=== PATIENT | male | born 1975 | race Caucasian/White ===

== ENCOUNTER 2020-02-16 17:03 | Emergency (ER) | payer BC, SELFPAY ==
--- NOTE | ~2020-02-16 | XR_ITS ---
EXAMINATION: XR chest 2V 02/16/2020 17:42 INDICATION: Midsternal chest pain PROCEDURE: 2 view chest COMPARISON: No prior studies for comparison. FINDINGS: The lungs are clear. The cardiomediastinal silhouette is within normal limits. There are no pleural effusions. There is no pneumothorax suspected. IMPRESSION: 1: NO ACUTE CARDIOPULMONARY DISEASE. Reviewed, dictated and finalized at location A.
[2020-02-16 17:11] VITALS: BP 130/92; PULSE 74; RESP 16; TEMP 36.6; O2SAT 97
--- NOTE | 2020-02-16 17:11 | ECG_ITS ---
Measurements Intervals [place] Rate: 74 P: 42 WA: 185 QRS: -27 QRSD: 121 T: 5 QT: 403 QTc: 450 Interpretive Statements SINUS RHYTHM DELAYED PRECORDIAL R/S TRANSITION VOLTAGE CRITERIA FOR LVH BORDERLINE T WAVE ABNORMALITY- INFERIOR LEADS BORDERLINE ECG Electronically Signed On 02-17-2020 7:08:10 CDT by Boogie Yates D.O.
[2020-02-16 17:37] LABS: Basophils Absolute Auto 0.04 K/mm3 (0.00-0.10); Basophils Percent Auto 0.5 % (0.0-1.0); Eosinophils Percent Auto 1.2 % (1.0-6.0); Hematocrit 38.4 % (40.0-54.0); Hemoglobin 13.1 g/dL (14.0-18.0); Immature Granulocyte Absolute 0.02 K/mm3 (0.00-0.00); Immature Granulocyte Percent A 0.2 % (0.0-0.0); Lymphocytes Absolute Auto 3.53 K/mm3 (1.10-4.50); Mean Corpuscular HGB Conc 34.1 g/dL (32.0-36.0); Mean Corpuscular Volume 87.9 fL (78.0-102.0); Monocytes Absolute Auto 0.87 K/mm3 (0.10-0.90); Monocytes Percent Auto 10.6 % (2.0-11.0); Neutrophils Absolute Auto 3.7 K/mm3 (1.7-7.2); Neutrophils Percent Auto 44.5 % (50.0-70.0); Platelet Count Result 228 K/mm3 (150-420); Red Blood Count 4.37 M/mm3 (4.70-6.10); Red Cell Distribution Width 13.4 % (11.6-14.4); White Blood Count 8.2 K/mm3 (4.8-10.8)
[2020-02-16 17:51] LABS: Alanine Aminotransferase 62 U/L (16-63); Albumin Level 3.9 g/dL (3.4-5.0); Alkaline Phosphatase 39 U/L (46-116); Anion Gap 11 mmol/L (8-16); Aspartate Amino Transferase 26 U/L (15-37); Bilirubin,Total 0.4 mg/dL (0.00-1.00); Blood Urea Nitrogen 14 mg/dL (7-18); Carbon Dioxide 27 mmol/L (21-32); Chloride 100 mmol/L (98-108); Estimated CRCL calculation 92 ml/min; Estimated Glomerular Filt Rate > 60; Glucose 146 mg/dL (70-99); Lipase 115 U/L (73-393); Osmolality Calculated 289 mOsm/kg (285-295); Partial Thromboplastin Time 27.3 SEC (22.3-31.6); Potassium 3.9 mmol/L (3.5-5.1); Prothrombin Time 10.7 Seconds (9.64-11.0); Sodium 138 mmol/L (136-145); Total Protein 7.2 g/dL (6.4-8.2)
[2020-02-16 17:52] LABS: BNP < 5.0 pg/mL (0-100)
[2020-02-16 17:54] LABS: D Dimer 0.19 mg/L (0.19-0.50)
[2020-02-16 18:07] VITALS: BP 130/77; PULSE 69; RESP 16; O2SAT 98
[2020-02-16 18:07] LABS: Troponin I < 0.02 ng/mL (0.00-0.056)
--- NOTE | 2020-02-16 18:11 | ED.CHESTPAIN ---
HPI - Chest Pain General Chief Complaint: Chest Pain Stated Complaint: pressure on chest Source: patient Mode of arrival: ambulatory Limitations: no limitations History of Present Illness HPI narrative: this is a 44-year-old male gentleman that presents with some some chest discomfort a tightness with no shortness of breath no nausea vomiting no diaphoresis patient has a history of diabetes non smoker. Patient while at work earlier today was having some discomfort in his chest the rated 2/10 and currently had subsided. Patient has a family history of heart disease in his father in his mid 50s, currently the patient is a nonsmoker has a history of diabetes recently diagnosed approximately 6 months ago with some hypertension. There is no fever chills no shortness of breath no nausea vomiting no abdominal pain no diarrhea constipation, no flank pain no dysuria. MD complaint: chest pain and chest discomfort Onset (ago): hour(s) Timing of current episode: episodic and now resolved Onset: during rest Pain location: parasternal Pain radiation: none Severity: mild Pain scale (0-10): 2 Quality: tightness Relieving factors: nothing Exacerbating factors: nothing Related Data Home Medications Medication Instructions Recorded Confirmed atenolol 25 mg PO DAILY 02/16/20 02/16/20 atorvastatin 10 mg PO DAILY 02/16/20 02/16/20 divalproex 500 mg PO DAILY 02/16/20 02/16/20 levothyroxine 200 mcg PO DAILY 02/16/20 02/16/20 lisinopril-hydrochlorothiazide 1 tablet PO DAILY 02/16/20 02/16/20 metformin 1,000 mg PO DAILY 02/16/20 02/16/20 Allergies Allergy/AdvReac Type Severity Reaction Status Date / Time No Known Allergies Allergy Verified 02/16/20 17:21 Review of Systems Review of Systems: All systems reviewed & are unremarkable except as noted in HPI and below PMFSH Past Medical History Medical History Diabetes mellitus HTN (hypertension) Exam Const: General: cooperative, healthy appearing, comfortable, no acute distress, well developed, alert, awake and Physically active HENMT: Head: normal to inspection, normocephalic and atraumatic Ears: hearing grossly normal bilaterally Face and sinus: normal facial exam Mouth: Yes Normal oral and palatal mucosa present Eyes: General: appearance normal, both eyes and all related structures Eyelids: eyelids normal Conjunctivae: conjunctivae normal Sclera: sclerae normal Chest: Chest palpation & inspection: normal inspection of the chest, normal palpation of entire chest wall and localized rib tenderness with anteroposterior compression Resp: Effort & Inspection: normal respiratory effort and able to speak in complete sentences Auscultation: clear to auscultation bilaterally Cardio: Jugular venous distension: no JVD Palpation: normal PMI Rate: regular rate Rhythm: regular rhythm Heart sounds: S1 normal heart sound present and S2 normal heart sound present GI: Inspection: normal to inspection Skin: General skin exam: normal color and no rashes or lesions noted Psych: Appearance: grossly normal and well kempt Mental Status: mental status grossly normal Speech and movement: Normal speech and movement present Affect: normal affect Course Course Emergency Course: patient resting comfortably after reassessment with chest discomfort more less subsided. Advised patient to follow-up with his primary care physician within 1 to 2 weeks for possible outpatient stress test giving the patient has a family history of heart attack in his father. His ASHA risk score was 1 which gives him a 5% all cause mortality risk. Vital Signs Vital signs: Vital Signs Temperature 36.6 C 02/16/20 17:11 Pulse Rate 74 02/16/20 17:11 Respiratory Rate 16 02/16/20 17:11 Blood Pressure 130/92 H 02/16/20 17:11 Pulse Oximetry 97 02/16/20 17:11 Temperature 36.6 C 02/16/20 17:11 Pulse Rate 69 02/16/20 18:07 Respiratory Rate 16
== END 2020-02-16 18:20 | disposition home or self-care (01) ==
PROVIDERS: Emergency Provider Emergency Medicine; PCP Internal Medicine
DX: M94.0 Chondrocostal junction syndrome [Tietze] (principal); R07.9 Chest pain, unspecified
CPT/HCPCS: 36415; 71046; 80053; 83690; 83880; 84484; 85025; 85380; 85610; 85730; 93005; 99283; 99284

== ENCOUNTER 2020-03-14 16:24 | Emergency (ER) | payer BC, SELFPAY ==
--- NOTE | ~2020-03-14 | XR_ITS ---
EXAMINATION: XR chest 1V portable DATE: 03/14/2020 16:47 INDICATION: Cough and fever TECHNIQUE: frontal view of the chest was obtained. COMPARISON: Chest radiograph dated 02/16/2020 FINDINGS: The lungs remain clear with no focal airspace opacities, pulmonary edema, pleural effusion or pneumot horax. The cardiomediastinal silhouette is normal. Visualized bones and soft tissues are unremarkable . IMPRESSION: 1. No acute cardiopulmonary disease. Reviewed, dictated and finalized at location H. NING MACHINE OPERATOR
--- NOTE | 2020-03-14 16:28 | ED.URI ---
HPI - URI/Sore Throat General Chief Complaint: Upper Respiratory Infection Stated Complaint: SOB Time Seen by Provider: 03/14/20 16:29 Source: patient Mode of arrival: ambulatory Limitations: no limitations History of Present Illness HPI Narrative: 44-year-old man with history of type 2 diabetes, hypertension, and thyroid disease comes in today complaining of fever, body headache, cough that is mildly productive, sore throat and nasal congestion which been present for the last 48 hours. He states he had a temperature of a 103? yesterday. He denies shortness of breath, chest pain, vomiting, diarrhea and sick exposures. Has no history of smoking or lung disease. MD elicited complaint: fever, cough, sore throat and nasal congestion Onset (ago): day(s) (2) Consistency: constant Severity: moderate Description of mucous: clear Exacerbating factors: nothing Associated symptoms: fever, headache, nasal congestion, sore throat and cough Related Data Home Medications Medication Instructions Recorded Confirmed atenolol 25 mg PO DAILY 02/16/20 02/16/20 atorvastatin 10 mg PO DAILY 02/16/20 02/16/20 divalproex 500 mg PO DAILY 02/16/20 02/16/20 levothyroxine 200 mcg PO DAILY 02/16/20 02/16/20 lisinopril-hydrochlorothiazide 1 tablet PO DAILY 02/16/20 02/16/20 metformin 1,000 mg PO DAILY 02/16/20 02/16/20 Allergies Allergy/AdvReac Type Severity Reaction Status Date / Time No Known Allergies Allergy Verified 02/16/20 17:21 Review of Systems Constitutional: Constitutional: Denies chills and Reports fever(s) Eyes: Eyes: Denies change in vision and Denies photophobia ENT: Denies dysphagia, Reports nasal congestion and Reports sore throat Cardiovascular: Cardiovascular: Denies chest pain and Denies radiating jaw, neck or arm pain Respiratory: Respiratory: Reports cough and Denies dyspnea Gastrointestinal: Gastrointestinal: Denies abdominal pain, Denies diarrhea and Denies vomiting Genitourinary: Genitourinary: Denies dysuria and Denies urinary frequency Integumentary/Breasts: Skin/Breast: Denies pruritus, Denies erythema and Denies rash Neurologic: Denies vertigo, Denies dizziness, Denies syncope and Reports headache(s) Hematologic/Lymphatic: Hematologic/Lymphatic: Denies easy bleeding and Denies easy bruising Allergic/Immunologic: Allergic/Immunologic: Denies lip swelling and Denies tongue swelling [facility] Past Medical History Medical History (Updated 03/14/20 @ 17:17 by Sheng Coleman MD) Diabetes mellitus HTN (hypertension) Surgical History Surgical History (Updated 03/14/20 @ 16:49 by Sheng Coleman MD) H/O hernia repair H/O thyroidectomy Social History Social History (Updated 03/14/20 @ 16:50 by Sheng Coleman MD) Smoking status: Never smoker Alcohol use details: rarely Substance use: never Living arrangements: with family Additional occupation/education comments: CPA Gender identity (if verbalized by the patient): Male Exam Const: General: healthy appearing and alert Orientation/consciousness: patient oriented x3 Limitations: no limitations Other: mild acute distress HENMT: Head: normal to inspection Ears: external ears normal, TM's normal bilaterally and EAC's normal General nose exam: Normal nares present Face and sinus: normal facial exam Mouth: Yes moist mucous membranes Other: pharyngeal erythema without exudate, masses or swellin Eyes: Conjunctivae: conjunctivae normal Pupils: Equal, round and reactive pupils present EOM: EOMs intact bilaterally Resp: Effort & Inspection: normal respiratory effort and not labored Auscultation: clear to auscultation bilaterally, no rales, no rhonchi and no wheezes Cardio: Rate: regular rate Rhythm: regular rhythm Heart sounds: no murmurs Skin: General skin exam: normal color, no jaundice and no pallor Rashes: no rashes Neuro: General: patient oriented x3, moves all extremities, no focal motor deficits and CN's II-
[2020-03-14 16:30] VITALS: BP 130/80; PULSE 80; RESP 16; TEMP 37.5; O2SAT 97
[2020-03-14 17:01] VITALS: BP 132/70; PULSE 82; RESP 16; TEMP 37.2; O2SAT 98
[2020-03-14 17:10] LABS: SARS-CoV-2 Ag Positive (Negative)
[2020-03-14 17:11] LABS: Influenza Control Valid (Valid)
[2020-03-14 17:25] VITALS: BP 130/78; PULSE 80; RESP 16; TEMP 37; O2SAT 98
== END 2020-03-14 17:28 | disposition home or self-care (01) ==
PROVIDERS: Emergency Provider Emergency Medicine; PCP Internal Medicine
DX: U07.1 COVID-19 (principal)
CPT/HCPCS: 71045; 87081; 87426; 87804; 87880; 99282; 99283

== ENCOUNTER 2022-08-17 21:36 | Emergency (ER) | payer BC, SELFPAY ==
[2022-08-17] VITALS (8 sets, daily range): BP systolic 145–180; BP diastolic 93–111; PULSE 70–75; RESP 18; TEMP 36.8; O2SAT 96–98
--- NOTE | ~2022-08-17 | XR_ITS ---
Clinical Indication: Cough PA and lateral views of the chest: Comparison: 03/14/2020 Findings: The lungs are clear, without evidence of focal consolidation or pleural effusion. Cardiome diastinal silhouette is within normal limits. Bones and soft tissues are unremarkable. Impression: Normal chest. Reviewed, dictated and finalized at location . Impression: Normal chest.
--- NOTE | 2022-08-17 21:57 | ECG_ITS ---
Measurements Intervals [place] Rate: 72 P: 24 UT: 185 QRS: -36 QRSD: 104 T: -8 QT: 393 QTc: 432 Interpretive Statements SINUS RHYTHM LEFT AXIS DEVIATION POSSIBLE LEFT ATRIAL ENLARGEMENT PATTERN CONSISTENT WITH PULMONARY DISEASE POSSIBLE LEFT VENTRICULAR HYPERTROPHY BORDERLINE T WAVE ABNORMALITY- INF/LAT LEADS BORDERLINE ECG COMPARED TO ECG 02/16/2020 17:18:00 LEFT-AXIS DEVIATION NOW PRESENT Electronically Signed On 08-18-2022 6:51:47 CDT by Boogie Yates D.O.
--- NOTE | 2022-08-17 22:20 | ED.GENADULT ---
HPI - General Adult General Chief complaint: Unspecified Stated complaint: High Blood Pressure Source: patient and family Mode of arrival: ambulatory Limitations: no limitations History of Present Illness HPI narrative: 38-year-old white male history of hypertension came in for elevated high blood pressure. He has gained 20 lb in the last month and a half or so. He was on lisinopril 5 mg daily but that got increased to 10 mg a day 6 days ago after he was out running any felt like he had a fast heart rate without any chest pain. He was short of breath. Denies blood pressure was in the 190s over 120 at home. Denies any chest pain or shortness of breath diaphoresis nausea or vomiting or any other symptoms. And used a running 3 miles at a time 3 to 6 times a week. But since 6 days ago he has not run anymore. Is a family history of heart disease father had heart attack at in his 50s. Patient denies any cough shortness of breath diaphoresis lumps or bumps bleeding or bruising rashes or itching fever dizziness or lightheadedness weakness or numbness or any other complaints. Related Data Home Medications Medication Instructions Recorded Confirmed atenolol 25 mg tablet 25 mg PO DAILY 02/16/20 03/14/20 atorvastatin 10 mg tablet 10 mg PO DAILY 02/16/20 03/14/20 divalproex 500 mg tablet,delayed 500 mg PO DAILY 02/16/20 03/14/20 release levothyroxine 200 mcg tablet 200 mcg PO DAILY 02/16/20 03/14/20 lisinopril 20 1 tablet PO DAILY 02/16/20 03/14/20 mg-hydrochlorothiazide 12.5 mg tablet metformin 500 mg tablet,extended 1,000 mg PO DAILY 02/16/20 03/14/20 release 24 hr Allergies Allergy/AdvReac Type Severity Reaction Status Date / Time No Known Allergies Allergy Verified 08/17/22 21:45 [facility] Past Medical History Medical History (Updated 08/17/22 @ 23:16 by Arnaldo Maciel MD) Diabetes mellitus HTN (hypertension) Surgical History Surgical History (Updated 03/14/20 @ 16:49 by Sheng Coleman MD) H/O hernia repair H/O thyroidectomy Social History Social History (Updated 03/14/20 @ 16:50 by Sheng Coleman MD) Smoking status: Never smoker Alcohol use details: rarely Substance use: never Living arrangements: with family Additional occupation/education comments: CPA Gender identity (if verbalized by the patient): Male Exam Narrative: White male appears in no apparent distress head is normocephalic eyes conjunctiva pink sclera nonicteric oropharynx is clear with moist Mucous membranes. Neck is supple no lymphadenopathy. Heart is regular rate and rhythm without murmurs gallops or rubs. Chest and back are nontender. extremities no cyanosis clubbing or edema. Neurological motor and sensory grossly intact speech and gait are normal. Course Vital Signs Vital signs: Vital Signs Temperature 36.8 C 08/17/22 21:38 Pulse Rate 71 08/17/22 21:38 Respiratory Rate 18 08/17/22 21:38 Blood Pressure 180/100 H 08/17/22 21:38 Pulse Oximetry 97 08/17/22 21:38 Oxygen Delivery Room Air 08/17/22 21:38 Temperature 36.8 C 08/17/22 21:38 Pulse Rate 72 08/17/22 23:01 Respiratory Rate 18 08/17/22 23:01 Blood Pressure 145/93 H 08/17/22 23:01 Pulse Oximetry 98 08/17/22 23:01 Oxygen Delivery Room Air 08/17/22 21:38 Medical Decision Making MDM Narrative Medical decision making narrative: Independent Historian: patient's Differential Dx includes but not limited to: Essential hypertension uncontrolled anxiety coronary artery disease electrolyte imbalance hyperthyroidism Independently Reviewed by me: EKG ventricular rate of 42 sinus rhythm possible left atrial enlargement left axis deviation no acute ST T wave abnormalities, LVH. EKG looks the same as 2019 in January. Impression: Abnormal EKG as interpreted by me External Source Review: EKG January 2020 was no different than today's EKG. Shared decision Making: Last blood pressure 147/96
[2022-08-17 22:28] LABS: Hematocrit 41.8 % (40.0-54.0); Hemoglobin 14.6 g/dL (14.0-18.0); Mean Corpuscular HGB Conc 34.9 g/dL (32.0-36.0); Mean Corpuscular Hemoglobin 30.6 pg (27.0-31.0); Mean Corpuscular Volume 87.6 fL (78.0-102.0); Mean Platelet Volume 10.4 fl (8.7-11.0); Platelet Count Result 186 K/mm3 (150-420); Red Blood Count 4.77 M/mm3 (4.70-6.10); Red Cell Distribution Width 13.2 % (11.6-14.4); White Blood Count 8.9 K/mm3 (4.8-10.8)
[2022-08-17 22:49] LABS: Alanine Aminotransferase 28 U/L (16-63); Albumin Level 3.7 g/dL (3.4-5.0); Alkaline Phosphatase 43 U/L (46-116); Anion Gap 9 mmol/L (8-16); Aspartate Amino Transferase 15 U/L (15-37); Bilirubin,Total 0.6 mg/dL (0.00-1.00); Blood Urea Nitrogen 16 mg/dL (7-18); Calcium 8.8 mg/dL (8.5-10.1); Carbon Dioxide 29 mmol/L (21-32); Chloride 103 mmol/L (98-108); Estimated CRCL calculation 94 ml/min; Estimated Glomerular Filt Rate > 60; Glucose 124 mg/dL (70-99); Magnesium 1.9 mg/dL (1.8-2.4); Osmolality Calculated 294 mOsm/kg (285-295); Potassium 3.9 mmol/L (3.5-5.1); Sodium 141 mmol/L (136-145); Thyroid Stimulating Hormone 1.81 uIU/mL (0.36-3.74); Troponin I 6.1 ng/L (0.00-60.4)
== END 2022-08-17 23:22 | disposition home or self-care (01) ==
PROVIDERS: Emergency Provider Emergency Medicine; PCP Internal Medicine
DX: I10 Essential (primary) hypertension (principal); E11.9 Type 2 diabetes mellitus without complications
CPT/HCPCS: 36415; 71046; 80053; 83735; 84443; 84484; 85027; 93005; 99284

== ENCOUNTER 2023-07-21 14:20 | Outpatient (CLI) | payer BC, SELFPAY ==
--- NOTE | ~2023-07-21 | US_ITS ---
EXAMINATION: US axilla RT DATE: 07/21/2023 14:42 INDICATION: Right axillary mass. TECHNIQUE: Multiple grayscale and Doppler ultrasound images of the right axilla were obtained. COMPARISON: None FINDINGS: In the right axilla, there is a 1.8 x 2.3 x 1.2 cm hyperechoic subcutaneous mass. IMPRESSION: 1. 2.3 cm hyperechoic subcutaneous mass in right axilla, likely a lipoma. Reviewed, dictated and finalized at location A.
== END 2023-07-21 14:21 | disposition home or self-care (01) ==
LOC: CHSIMG 14:24
PROVIDERS: PCP Internal Medicine; Visit Provider Internal Medicine
DX: R22.2 Localized swelling, mass and lump, trunk (principal)
CPT/HCPCS: 76882

== ENCOUNTER 2023-08-31 01:56 | Day surgery (SDC) | payer BC, SELFPAY ==
[2023-08-13 08:14] VITALS: BMI 35.4
[2023-08-31 06:47] VITALS: BP 131/101; PULSE 83; RESP 18; TEMP 36.4; O2SAT 100
[2023-08-31] MEDS: LACTATED RINGERS 1,000 ML 150 ML IV CONT (07:10)
[2023-08-31 07:11] LABS: Glucose Point of Care 122 mg/dl (65-105)
--- NOTE | 2023-08-31 07:26 | WPDANESEPPF ---
Anes - Initial Pre Proc Eval Procedure: Operation Date: 08/31/23 08:00 Proposed Procedures p Screening Colonoscopy - Omer Hall MD Date/Time: 08/31/23 07:26 Surgeon: Omer Hall MD Pre Op Diagnosis: neoplasm screening Patient Data Age: 48 Gender: M Height: 1.78 m Weight: 110.7 kg Last Vital Signs Temp 97.5 F L 08/31/23 06:47 Pulse 83 08/31/23 06:47 Resp 18 08/31/23 06:47 BP 131/101 H 08/31/23 06:47 Pulse Ox 100 08/31/23 06:47 O2 Del Method Room Air 08/31/23 06:47 Allergies Allergy/AdvReac Type Severity Reaction Status Date / Time No Known Allergies Allergy Verified 08/31/23 06:45 Home Medications Medication Instructions Recorded Confirmed Type atorvastatin 10 mg tablet 10 mg PO DAILY 02/16/20 08/13/23 History divalproex 500 mg tablet,delayed 500 mg PO BID 02/16/20 08/13/23 History release levothyroxine 200 mcg tablet 175 mcg PO DAILY 02/16/20 08/31/23 History amlodipine 5 mg tablet 5 mg PO DAILY 08/13/23 08/13/23 History losartan 100 mg tablet 100 mg PO DAILY 08/13/23 08/13/23 History omega 5-xsa-ehr-fish oil 1,200 mg 2 cap PO DAILY 08/13/23 08/13/23 History (144 mg-216 mg) capsule (Fish Oil) semaglutide 14 mg tablet (Rybelsus) 14 mg PO DAILY 08/13/23 08/13/23 History vitamin E 268 mg (400 unit) capsule 180 mg PO DAILY 08/13/23 08/13/23 History Laboratory Tests 08/31/23 07:06 POC Capillary Glucose 122 H mg/dl (65-105) Patient hx anesthesia problems: none Family hx anesthesia problems: none Results Review: All pre-operative results and documents have been reviewed as part of the pre-operative evaluation. [facility] Past Medical History Medical History (System 06/16/23 @ 13:32 by Samra Castellanos) Diabetes mellitus HTN (hypertension) Surgical History Surgical History (System 06/16/23 @ 13:32 by Samra Castellanos) H/O hernia repair H/O thyroidectomy Social History Social History (System 06/16/23 @ 13:32 by Samra Castellanos) Smoking status: Never smoker Alcohol intake: never Substance use: never Substance use type: does not use Living arrangements: with family Additional occupation/education comments: CPA Gender identity (if verbalized by the patient): Male Spiritual care concerns: No Anes - Eval Final PreProcedure Day of Procedure 08/31/23 07:26 Patient weight: obese Heart: regular rate and rhythm Lungs: clear to auscultation Airway: Mallampati scale class II Neurological: alert and oriented Last oral intake: >/= 8 hours ASA classification: III Emergent: no Anesthetic plan: proceed Anesthesia type and monitoring: general GIVS and standard monitoring Results Review: All pre-operative results and documents have been reviewed as part of the pre-operative evaluation. Informed Consent: The patient's anesthetic plan and its attendant risks and benefits were discussed with the patient/family/POA. Questions were solicited and answers provided to the satisfaction of the patient/family/POA.
--- NOTE | 2023-08-31 07:42 | PM.HPGS ---
History of Present Illness History of Present Illness Consent: Risks, benefits, and alternatives have been discussed and questions answered. Patient agrees to proceed with procedure. Chief complaint: neoplasm screening Narrative: Sami Bose is a 48 year old male here for first screening colonoscopy Review of Systems Review of Systems: All systems reviewed & are unremarkable except as noted in HPI and below PMFSH Past Medical History Medical History (Updated 08/31/23 @ 07:45 by Omer Hall MD) Colon cancer screening Diabetes mellitus HTN (hypertension) Surgical History Surgical History (System 06/16/23 @ 13:32 by Samra Castellanos) H/O hernia repair H/O thyroidectomy Social History Social History (System 06/16/23 @ 13:32 by Samra Castellanos) Smoking status: Never smoker Alcohol intake: never Substance use: never Substance use type: does not use Living arrangements: with family Additional occupation/education comments: CPA Gender identity (if verbalized by the patient): Male Spiritual care concerns: No Meds Home Medications and Allergies Home Medications Medication Instructions Recorded Confirmed Type atorvastatin 10 mg tablet 10 mg PO DAILY 02/16/20 08/13/23 History divalproex 500 mg tablet,delayed 500 mg PO BID 02/16/20 08/13/23 History release levothyroxine 200 mcg tablet 175 mcg PO DAILY 02/16/20 08/31/23 History amlodipine 5 mg tablet 5 mg PO DAILY 08/13/23 08/13/23 History losartan 100 mg tablet 100 mg PO DAILY 08/13/23 08/13/23 History omega 3-jxf-nkk-fish oil 1,200 mg 2 cap PO DAILY 08/13/23 08/13/23 History (144 mg-216 mg) capsule (Fish Oil) semaglutide 14 mg tablet (Rybelsus) 14 mg PO DAILY 08/13/23 08/13/23 History vitamin E 268 mg (400 unit) capsule 180 mg PO DAILY 08/13/23 08/13/23 History Allergies Allergy/AdvReac Type Severity Reaction Status Date / Time No Known Allergies Allergy Verified 08/31/23 06:45 Vital Signs Vital Signs - 24 hr 08/31/23 06:47 Temperature 97.5 F L Pulse Rate 83 Respiratory Rate 18 Blood Pressure 131/101 H Pulse Oximetry 100 Oxygen Delivery Room Air Exam Const: General: comfortable and no acute distress HENMT: Face/Nose/Sinus: Normal nares present Eyes: General: appearance normal, both eyes and all related structures Neck: Neck: no JVD Resp: Auscultation: clear to auscultation bilaterally Cardio: Rate: regular rate Rhythm: regular rhythm GI: Inspection: non-distended GI Palp: Yes Soft to palpation Skin: General skin exam: normal color Neuro: General: gait normal Speech: normal speech Extrem: General: normal to inspection Psych: Mental Status: mental status grossly normal Assessment and Plan Assessment and plan (1) Colon cancer screening: Code(s): Z12.11 - Encounter for screening for malignant neoplasm of colon Status: Acute Assessment and Plan: colonoscopy
[2023-08-31 08:25] VITALS: BP 113/90; PULSE 79; RESP 19; O2SAT 95
--- NOTE | 2023-08-31 08:25 | SUR.OPER ---
04/21 ascending colon polyps retrieved Dr Cisneros notified
[2023-08-31 08:35] VITALS: BP 100/75; PULSE 92; RESP 19; O2SAT 98
[2023-08-31 08:45] VITALS: BP 119/81; PULSE 76; RESP 15; O2SAT 98
== END 2023-08-31 08:59 | disposition home or self-care (01) ==
PROVIDERS: PCP Internal Medicine; Visit Provider Internal Medicine Gastroenterology
PROC: 0DJD8ZZ Inspection of Lower Intestinal Tract, Via Natural or Artificial Opening Endoscopic (ICD-10-PCS; CPT 45378; principal; 2023-08-31 08:00)
DX: Z12.11 Encounter for screening for malignant neoplasm of colon (principal); D12.2 Benign neoplasm of ascending colon; I10 Essential (primary) hypertension; E11.9 Type 2 diabetes mellitus without complications; E66.9 Obesity, unspecified; Z68.35 Body mass index [BMI] 35.0-35.9, adult; Z79.85 Long-term (current) use of injectable non-insulin antidiabetic drugs; Z98.890 Other specified postprocedural states
CPT/HCPCS: 45385; 82948; 88305; J2704; J7120

== ENCOUNTER 2024-10-24 21:20 | Emergency (ER) | payer BC, SELFPAY ==
--- NOTE | ~2024-10-24 | CT_ITS ---
EXAMINATION: CT abdomen pelvis w con DATE: 10/24/2024 22:36 INDICATION: abdominal throbbing adjacent to the umbilicus TECHNIQUE: Computed tomography (CT) of the abdomen and pelvis was performed with 100 mL Omnipaque-350 intravenous contrast. Automated exposure control and iterative reconstruction technique were employe d. The dose-length product was 1156.55 mGy-cm. COMPARISON: None. FINDINGS: Lower thorax: Minimal symmetric gynecomastia. Mild coronary artery calcifications. Trace pericardial fluid. Liver: Mildly enlarged. Left lobe cyst. Subcentimeter right lobe hypodensity, likely cyst or hemangio ma. Biliary/Gallbladder: Gallbladder is normal. No bile duct dilation. Pancreas: No mass or duct dilation. Spleen: Normal. Adrenals:No mass. Kidneys: No suspicious mass, obstructing stone, or hydronephrosis. GI tract: Dependent hyperdensity in the gastric body likely related to ingested material. No small or large bowel dilation. Normal appendix. Mesentery/Peritoneum: No ascites, mass, or free air. Retroperitoneum: No mass. Pelvis: Mild urinary bladder wall thickening. Mild prostatomegaly.. Soft Tissues: Small uncomplicated appearing fat-containing umbilical and bilateral inguinal hernias. Bones: No acute osseous finding. IMPRESSION: Trace pericardial effusion. Hepatomegaly. Mild bladder wall thickening as can be seen with cystitis or chronic outlet obstruction. No CT abnormality other than an uncomplicated small fat-containing umbilical hernia detected in the r egion of the umbilicus. Reviewed, dictated and finalized at location K. IMPRESSION: Trace pericardial effusion. Hepatomegaly. Mild bladder wall thickening as can be seen with cystitis or chronic outlet obs truction. No CT abnormality other than an uncomplicated small fat-containing umbilical he rnia detected in the region of the umbilicus.
[2024-10-24 21:25] VITALS: PULSE 90
--- OUTSIDE RECORDS SUMMARY | 2024-10-24 21:28 | XMS_ITS | Clinical Summary ---
Author Organization [facility] Address [address] [place] [address] Care Team Providers Care Salesperson Men'S Hats Name Role Phone Unavailable Primary Care Provider Unavailabl e Source Comments [facility],non-owned Affiliates and Associated Physician Practices is amultiple site organization consisting of ambulatory clinics and hospital sitesin [place], [place], [place] and [place]. This disclosure is being madepursuant to the Care Everywhere program and may not contain all information available regarding this patient. Last updated 18.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 Gender Identity Not on file Sexual Orientation Not on file Plan of Treatment Health Maintenance Due Date Last Done Comments COLOGUARD (AGES 45-75) - COL ON CA SCREENING 1973 COLON MONITORING 1973 COLONOSCOPY - COLON CA SCREENING 1973 CT COLONOGRAPHY - COLON CA SCREENING 1973 Colorectal Cancer Screening 1973 FIT - COLON CA SCREENING 1973 FLEX SIG - COLON CA SCREENING 1973 LIPID TESTING 1973 HIV SCREENING 1988 HEPATITIS C SCREENING 08/23/1991 DTAP/TDAP/TD VACCINES (1 - Tdap) 1992 HEPATITIS B VACCINE (1 of 3 - 19+ 3-dose series) 1992 PNEUMOCOCCAL VACCINE 50+ (1 of 1 - PCV) 08/28/2023 ZOSTER VACCINE (1 of 2) 08/28/2023 COVID-19 VACCINE (1 - 2023-2 5 season) 2023 DEPRESSION SCREENING 04/20/2024 INFLUENZA VACCINE (Season Ended) 2024 HIB VACCINE Aged Out No longer eligi ble based on patient's age to complete this topic HPV VACCINE Aged Out No longer eligi ble based on patient's age to complete this topic MENINGOCOCCAL (Group B) VACC INE SHARED DECISION-MAKING Aged Out No longer eligibl e based on patient's age to complete this topic MENINGOCOCCAL GROUPS A/C/Y/W VACCINE Aged Out No longer eligible b ased on patient's age to complete this topic Insurance * Guarantor: AD CONNER Account Type Relation to Patient Date of Phone Billing Address Personal/Family [address] [place] [address] [facility] SELF PAY NO INSURANCE Member Subscriber Plan / Payer (Ef fective for All Dates) Name:Ad Conner Member ID:Not on file Relation to Subscriber:Not on file Name:AD CONNER Subscriber ID:Not on file (Home) Address: [address] [place] [address] Payer ID:Not on file Group ID:Not on file Type:Self Pay Address: [address] * Guarantor: AD CONNER Account Type Relation to Patient Date of Phone Billing Address Personal/Family [address] [place] [address] [employer] [place] SELF PAY NO INSURANCE Member Subscriber Plan / Payer (Ef fective for All Dates) Name:Ad Conner Member ID:Not on file Relation to Subscriber:Not on file Name:AD CONNER Subscriber ID:Not on file (Home) Address: [address] [place] [address] Payer ID:Not on file Group ID:Not on file Type:Self Pay Address: [place], [place] * Guarantor: AD CONNER Account Type Relation to Patient Date of Phone Billing Address Personal/Family [address] [place] [address] [employer] [place] SELF PAY NO INSURANCE Member Subscriber Plan / Payer (Ef fective for All Dates) Name:Ad Conner Member ID:Not on file Relation to Subscriber:Not on file Name:AD CONNER Subscriber ID:Not on file (Home) Address: [address] [place] [address] Payer ID:Not on file Group ID:Not on file Type:Self Pay Address: [place], [place]
--- OUTSIDE RECORDS SUMMARY | 2024-10-24 21:28 | XMS_ITS | Clinical Summary ---
Author Organization [facility] Address [address] [place] [address] Care Team Providers Care Casting Agent Name Role Phone Freddie Shearer MD Primary Care Provider [phone] Irma Fernandes MD Unavailable Allergies No known active allergies Medications atorvastatin 10 MG tablet Take 1 tablet by mouth daily. 04/10/2020 Active divalproex EC 500 MG tablet Take 1 tablet by mouth 2 (two) times daily. 04/19/2020 Active Multiple Vitamin (MULTIVITAMIN) capsule Take 1 tablet by mouth daily. 11/01/2010 Active losartan (COZAAR) 100 MG tablet Take 1 tablet (100 mg total) by mouth daily. 09/23/2022 Active [place]-3 Fatty Acids (MINI FISH OIL) 645 MG Cap Acti ve vitamin E 180 MG (400 UNIT) capsule Active Levothyroxine Sodium 175 MCG Cap Active RYBELSUS 14 MG Tab Active amLODIPine (NORVASC) 5 MG tablet take one tablet by mouth daily 30 tablet 09/15/2023 Active amLODIPine (NORVASC) 2.5 MG tablet Take on tablet along with 5mg tablet to equal 7.5mg daily 30 tablet 11/10/2023 Active Active Problems Problem Noted Date Diagnosed Date Essential hypertension, benign 04/25/2020 Type 2 diabetes mellitus, wi thout long-term current use of insulin ([facility]) 04/25/2020 Mixed hyperlipidemia 04/25/2020 Chest pain, unspecified type 04/25/2020 Family History Medical History Relation Comments Heart Attack Father Open Heart Father Relation Status Comments Father Alive Mother Alive Social History Tobacco Use Types Packs/Day Years Used Date Smoking Tobacco: Never Smokeless Tobacco: Never Alcohol Use Standard Drinks/Week Comments Yes 0 (1 standard drink = 0.6 oz pur e alcohol) rare Sex and Gender Information Value Date Recorded Sex Assigned at Not on file Legal Sex Male 10:51 PM CDT Gender Identity Not on file Sexual Orientation Not on file 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 Not on file Not on file Not on file Last Filed Vital Signs Vital Sign [place] Time Taken Comments Blood Pressure 138/74 11/10/2023 1:04 PM CDT Pulse 99 11/10/2023 1:04 PM CDT Temperature - - Respiratory Rate 16 11/10/2023 1:04 PM CDT Oxygen Saturation 96% 11/10/2023 1:04 PM CDT Inhaled Oxygen Concentration - - Weight 113.9 kg (251 lb) 11/10/2023 1:04 PM CDT Height 177.8 cm (5' 10) 11/10/2023 1:04 PM CDT Body Mass Index 36.01 11/10/2023 1:04 PM CDT Plan of Treatment Upcoming Encounters Date Type Department Care Team (Late st Contact Info) Description 11/09/2024 2:30 PM CDT Appointment [place] [facility] [place] [address] Irma Fernandes MD [address], [place] [phone] 11/28/2024 9:45 AM CDT Office Visit [facility] [address] [place] [id number] Irma Fernandes MD [address], [place] [id number] Health Maintenance Due Date Last Done Comments Colorectal Cancer Screening Colonoscopy (10 Years) 1973 Kidney Health Evaluation 1973 Hemoglobin A1C 1973 Lipid Panel 1973 Annual Physical 1976 Diabetes: Retinopathy Eye Exam 08/28/1991 Hepatitis C 08/28/1991 DTaP, Tdap and Td Vaccines ( 1 - Tdap) 1992 Hepatitis B Vaccines (1 of 3 - 19+ 3-dose series) 1992 Pneumococcal Vaccine: 50+ Ye ars (1 of 2 - PCV) 1992 Zoster Vaccines (1 of 2) 08/28/2023 COVID-19 Vaccine (1 - 2023-2 5 season) 2023 Meningococcal B Vaccine Aged Out No l onger eligible based on patient's age to complete this topic Meningococcal Vaccine Aged Out No rich espinoza eligible based on patient's age to complete this topic RSV Immunizations Under 20 Months Aged Out No longer eligible based on patient's age to complete this topic Insurance [facility] Care Teams Casting Agent Relationship Specialty Start Date End Date Freddie Shearer MD [address] [place] [address] PCP - General INTERNAL MEDICINE 03/05/20 Irma Fernandes MD [address] [place] [address] Consulting Physician CARDIOVASCULAR DISEASE 09/29/22
[2024-10-24 21:33] VITALS: BP 167/98; PULSE 94; RESP 20; TEMP 36.7; O2SAT 97
[2024-10-24] MEDS: SODIUM CHLORIDE 0.9% IV 1,000 ML 999 ML IV CONT (22:02)
[2024-10-24 22:06] LABS: Alanine Aminotransferase 30 U/L (6-50); Albumin Level 4.4 g/dL (3.5-5.1); Alkaline Phosphatase 42 U/L (38-126); Anion Gap 9 mmol/L (4-12); Aspartate Amino Transferase 27 U/L (17-59); Bilirubin,Total 0.6 mg/dL (0.2-1.3); Blood Urea Nitrogen 17 mg/dL (9-20); Calcium 9.0 mg/dL (8.4-10.2); Carbon Dioxide 26 mmol/L (22-30); Chloride 102 mmol/L (98-107); Estimated CRCL calculation 95 ml/min; Estimated Glomerular Filt Rate > 60; Glucose 119 mg/dL (65-110); Osmolality Calculated 286 mOsm/kg (285-295); Potassium 3.8 mmol/L (3.4-5.0); Sodium 137 mmol/L (137-145); Total Protein 7.3 g/dL (6.3-8.2)
--- NOTE | 2024-10-24 22:09 | PC.NURSE ---
ivf started. pt update provided. patient awaiting results of labs, pending ct scan. call light within reach. pt denies needs.
--- NOTE | 2024-10-24 22:19 | ED.GENADULT ---
HPI - General Adult General Chief complaint: Unspecified Stated complaint: pulsating in abdomen Time Seen by Provider: 10/24/24 21:28 Source: patient Mode of arrival: ambulatory Limitations: no limitations History of Present Illness HPI narrative: this is a 49-year-old male with history of hypertension and hyperlipidemia nonsmoker that presents with a a sensation of throbbing in his abdomen started earlier today with no pain no flank pain no dysuria no chest pain or shortness of breath no nausea vomiting no diarrhea constipation. Onset (ago): hour(s) Radiation: non-radiation Related Data Home Medications ?Medication ?Instructions ?Recorded ?Confirmed ?Last Taken ?Type atorvastatin 10 mg tablet 10 mg PO DAILY 02/16/20 03/31/24 Unknown History divalproex 500 mg tablet,delayed 500 mg PO BID 02/16/20 03/31/24 Unknown History release levothyroxine 200 mcg tablet 175 mcg PO DAILY 02/16/20 03/31/24 08/31/23 History amlodipine 5 mg tablet 5 mg PO DAILY 08/13/23 03/31/24 Unknown History losartan 100 mg tablet 100 mg PO DAILY 08/13/23 03/31/24 Unknown History omega 7-ptr-otu-fish oil 1,200 mg 2 cap PO DAILY 08/13/23 03/31/24 Unknown History (144 mg-216 mg) capsule (Fish Oil) semaglutide 14 mg tablet (Rybelsus) 14 mg PO DAILY 08/13/23 03/31/24 Unknown History vitamin E 268 mg (400 unit) capsule 180 mg PO DAILY 08/13/23 03/31/24 Unknown History Allergies Allergy/AdvReac Type Severity Reaction Status Date / Time No Known Allergies Allergy Verified 03/31/24 09:15 Review of Systems Review of Systems: All systems reviewed & are unremarkable except as noted in HPI and below PMFSH Past Medical History Medical History Colon cancer screening HTN (hypertension) Diabetes mellitus Surgical History Surgical History History of left inguinal hernia repair as a child H/O thyroidectomy 2009 Family History Family History Other Heart disease Hypertension Lung cancer Social History Social History Smoking status: Never smoker Alcohol intake: never Substance use: never Substance use type: does not use Do You Feel Safe in your Home?: Yes Lack of Transportation: No Lack of Food: Never True Current Housing: I Have Housing Concerned About Future Housing: No Difficulty Paying Gas/Electric Bills: No Difficulty Paying for Meds: No Currently Unemployed: No Education: Bachelor's Degree Difficulty w/ Childcare or Family Care: No Living arrangements: with family Additional occupation/education comments: CPA Gender identity (if verbalized by the patient): Male Spiritual care concerns: No Exam Const: General: cooperative, healthy appearing, comfortable, no acute distress, well developed, alert, awake and Physically active Neck: Neck: normal visual inspection, full ROM, no lymphadenopathy and no meningeal signs Chest: Chest palpation & inspection: normal inspection of the chest and normal palpation of entire chest wall Resp: Effort & Inspection: normal respiratory effort and able to speak in complete sentences Cardio: Jugular venous distension: no JVD Palpation: normal PMI Rate: regular rate Rhythm: regular rhythm Heart sounds: S1 normal heart sound present and S2 normal heart sound present GI: Inspection: normal to inspection Percussion: Yes normal to percussion Auscultation: normal bowel sounds : General: Yes bimanual renal exam normal bilaterally Urinary Catheter: Urinary Catheter: patent and draining Back/Spine/Pelvis: Back: no CVA tenderness Skin: General skin exam: normal color and no rashes or lesions noted Neuro: General: oriented to person, oriented to place and oriented to time Course Course Emergency Course: CMP performed which shows no acute abnormalities CT abdomen and pelvis with contrast performed and reviewed with patient and family. Blood pressure stable little bit on the higher side advised patient to take his medication that he is prescribed there is no abdominal pain no flank pain no dysuria or hematuria. Vital Signs Vital signs: Vital Signs Pulse Rate 90 10/24/24 21:25 Temperature 36.7 C 10/24/24 21:33 Pulse Rate 94 10/24/24 21:33 Respiratory Rate 20 10/24/24 21:33 Blood Pressure 167/98 H 10/24/24 21:33 Pulse Oximetry 97 10/24/24 21:33 Oxygen Delivery Room Air 10/24/24 21:33 Medical Decision Making Vital Signs Vital Signs: Vital Signs Pulse Rate 90 10/24/24 21:25 Temperature 36.7 C 10/24/24 21:33 Pulse Rate 94 10/24/24 21:33 Respiratory Rate 20 10/24/24 21:33 Blood Pressure 167/98 H 10/24/24 21:33 Pulse Oximetry 97 10/24/24 21:33 Oxygen Delivery Room Air 10/24/24 21:33 Lab Data 10/24/24 21:48 Labs: Lab Results 10/24/24 Range/Units 21:48 Sodium 137 (137-145) mmol/L Potassium 3.8 (3.4-5.0) mmol/L Chloride 102 (98-107) mmol/L Carbon Dioxide 26 (22-30) mmol/L Anion Gap 9 (4-12) mmol/L BUN 17 (9-20) mg/dL Creatinine 1.02 (0.7-1.3) mg/dL Estim Creat Clear Calc 95 ml/min Estimated GFR > 60 (59 - ) Glucose 119 H (65-110) mg/dL Calculated Osmolality 286 (285-295) mOsm/kg Calcium 9.0 (8.4-10.2) mg/dL Total Bilirubin 0.6 (0.2-1.3) mg/dL AST 27 (17-59) U/L ALT 30 (6-50) U/L Alkaline Phosphatase 42 (38-126) U/L Total Protein 7.3 (6.3-8.2) g/dL Albumin 4.4 (3.5-5.1) g/dL Critical Care Time Critical Care Time Critical Care Time: No Discharge Plan Discharge Clinical Impression: Abdominal pain Qualifiers: Abdominal location: generalized Qualified Code(s): R10.84 - Generalized abdominal pain Patient Disposition: Home Condition: Stable Instructions: Antibiotic Form, Abdominal Pain (ED) Additional Instructions: advised patient to follow with primary care physician within next week for further evaluation treatment. Patient Language: Bangladeshi Prescriptions: No Action atorvastatin 10 mg tablet 10 mg PO DAILY divalproex 500 mg tablet,delayed release (DR/EC) 500 mg PO BID levothyroxine 200 mcg tablet 175 mcg PO DAILY amlodipine 5 mg tablet 5 mg PO DAILY losartan 100 mg tablet 100 mg PO DAILY vitamin E 268 mg (400 unit) Capsule 180 mg PO DAILY omega 0-bsf-lvl-fish oil [Fish Oil] 1,200 (144-216) mg Capsule 2 cap PO DAILY Rybelsus 14 mg tablet 14 mg PO DAILY Follow-up/Referrals: Freddie Shearer MD [Primary Care Provider] -
--- NOTE | 2024-10-24 22:21 | PC.NURSE ---
pt ambulatory to bathroom, to CT scan via wheelchair per cradle slide maker.
[2024-10-24 23:20] VITALS: BP 145/94; PULSE 80; RESP 18; TEMP 36.7; O2SAT 98
== END 2024-10-24 23:21 | disposition home or self-care (01) ==
PROVIDERS: Emergency Provider Emergency Medicine; PCP Internal Medicine
DX: R10.84 Generalized abdominal pain (principal); E11.9 Type 2 diabetes mellitus without complications; I10 Essential (primary) hypertension
CPT/HCPCS: 36415; 74177; 80053; 96360; 99284; J7030; Q9967